=== PATIENT | male | born 1950 | race Caucasian/White ===

== ENCOUNTER 2017-06-08 00:20 | Emergency (ER) | payer OTHER, MEDICARE, BC ==
[~2017-06-08] VITALS: Ht 177.8 cm; Wt 96.0 kg
[2017-06-08 00:33] VITALS: BP 163/70; PULSE 73; RESP 18; TEMP 97.9; O2SAT 99
--- NOTE | 2017-06-08 01:06 | PD ---
HPI Chief Complaint: Flank/Kidney Pain Time Seen by Provider: 01:03 Travel History International Travel<30 days: No Contact w/Intl Traveler<30days: No Traveled to known affect area: No History of Present Illness HPI 67-year-old male presents to the emergency department for evaluation of sudden onset left flank and left lower quadrant pain that awakened him from sleep just prior to arrival to the emergency department. Patient states at time of onset pain was quite severe but is now 2-3/10 in intensity. Patient with nausea no vomiting. No report of chest pain shortness of breath sweats near syncope referred neck jaw upper back shoulder arm pain. Patient does have history of dyslipidemia hypertension diabetes BPH and posttraumatic stress disorder. Patient is followed to the [place]. Patient's blood sugar has been fairly well- controlled at 100-115. Patient has had no fever chills. Patient denies prior history of kidney stones. Patient is taken no medications prior to arrival to the emergency department. Patient did note some mild hematuria earlier today. PFSH Past Medical History Narrative Medical Hypertension dyslipidemia diabetes posttraumatic stress disorder BPH; tobacco use; nursing notes reviewed Social History Tobacco Use: Yes Allergies-Medications (Allergen,Severity, Reaction): Uncoded Allergies: BLACK WALNUTS (Allergy, Severe, HIVES, FACIAL SWELLING, 06/08/17) CAN EAT OTHER TYPES OF NUTS WITHOUT ALLERGIC REACION Reported Meds & Prescriptions Reported Meds & Active Scripts Active Reported Metformin (Metformin HCl) 500 Mg Tab 1 Tab PO BID Doxazosin (Doxazosin Mesylate) 4 Mg Tab 1 Tab PO HS Atorvastatin (Atorvastatin Calcium) 80 Mg Tab 1 Tab PO HS Voltaren (Diclofenac Sodium) 1 % Gel..gram. 1 Appl TOPICAL BID Losartan (Losartan Potassium) 100 Mg Tab 1 Tab PO DAILY Gabapentin 400 Mg Cap 1 Cap PO QID Review of Systems Except as stated in HPI: all other systems reviewed are Neg General / Constitutional: No: Fever, Chills HENT: No: Congestion Cardiovascular: No: Chest Pain or Discomfort Respiratory: No: Shortness of Breath Gastrointestinal: Positive: Nausea, Abdominal Pain (LLQ) Genitourinary: Positive: Hematuria, Flank Pain (left) Musculoskeletal: No: Myalgias, Arthralgias Skin: No Rash Neurologic: No: Weakness Psychiatric: No: Anxiety Hematologic/Lymphatic: No: Easy Bruising, Lymph Node Enlargement Physical Exam Narrative GENERAL: Well-developed well-nourished male no acute distress no respiratory distress SKIN: Warm and dry. HEAD: Normocephalic. EYES: No scleral icterus. No injection or drainage. NECK: Supple, trachea midline. No JVD or lymphadenopathy. CARDIOVASCULAR: Regular rate and rhythm without murmurs, gallops, or rubs. RESPIRATORY: Breath sounds equal bilaterally. No accessory muscle use. GASTROINTESTINAL: Abdomen soft, non-tender, nondistended. MUSCULOSKELETAL: No cyanosis, or edema. Radial dorsalis pedis pulses 2+ to palpation BACK: Nontender without obvious deformity. No CVA tenderness. Data Data Last Documented VS Vital Signs Date Time Temp Pulse Resp B/P (MAP) Pulse Ox O2 Delivery O2 Flow Rate FiO2 06/08/17 01:40 74 18 127/60 (82) 96 06/08/17 00:33 97.9 Orders Orders Complete Blood Count With Diff (06/08/17 01:03) Comprehensive Metabolic Panel (06/08/17 01:03) Urinalysis - C+S If Indicated (06/08/17 01:03) Ct Abd/Pel W/O Iv Contrast (06/08/17 01:03) Ecg Monitoring (06/08/17 01:03) Iv Access Insert/Monitor (06/08/17 01:03) Ketorolac Inj (Toradol Inj) (06/08/17 02:00) Sodium Chlorid 0.9% 500 Ml Inj (Ns 500 M (06/08/17 02:00) Labs Laboratory Tests Test 06/08/17 01:10 White Blood Count 9.4 TH/MM3 Red Blood Count 4.54 MIL/MM3 Hemoglobin 13.1 GM/DL Hematocrit 37.3 % Mean Corpuscular Volume 82.2 FL Mean Corpuscular Hemoglobin 28.7 PG Mean Corpuscular Hemoglobin Concent 35.0 % Red Cell Distribution Width 12.7 % Platelet Count 200 TH/MM3 Mean Platelet Volume 8.3 FL Neutrophils (%) (Auto) 76.0 % Lymphocytes (%) (Auto) 17.1 % Monocytes (%) (Auto) 5.0 % Eosinophils (%) (Auto) 1.4 % Basophils (%) (Auto) 0.5 % Neutrophils # (Auto) 7.2 TH/MM3 Lymphocytes # (Auto) 1.6 TH/MM3 Monocytes # (Auto) 0.5 TH/MM3 Eosinophils # (Auto) 0.1 TH/MM3 Basophils # (Auto) 0.0 TH/MM3 CBC Comment DIFF FINAL Differential Comment Urine Collection Type CLEAN CATCH Urine Color YELLOW Urine Turbidity SL CLOUDY Urine pH 5.0 Urine Specific [place] GREATER/EQUAL 1.030 Urine Protein TRACE mg/dL Urine Glucose (UA) 100 mg/dL Urine Ketones 15 mg/dL Urine Occult Blood LARGE Urine Nitrite NEG Urine Bilirubin NEG Urine Urobilinogen 0.2 MG/DL Urine Leukocyte Esterase NEG Urine RBC 25-49 /hpf Urine WBC 0-2 /hpf Urine Squamous Epithelial Cells 0-5 /hpf Urine Amorphous Sediment SMALL Urine Bacteria OCC /hpf Urine Hyaline Casts 0-2 /lpf Urine Mucus FEW /lpf Microscopic Urinalysis Comment CULT NOT INDICATED Blood Urea Nitrogen 22 MG/DL Creatinine 1.20 MG/DL Random Glucose 173 MG/DL Total Protein 7.4 GM/DL Albumin 4.1 GM/DL Calcium Level 8.9 MG/DL Alkaline Phosphatase 46 U/L Aspartate Amino Transf (AST/SGOT) 24 U/L Alanine Aminotransferase (ALT/SGPT) 30 U/L Total Bilirubin 0.5 MG/DL Sodium Level 136 MEQ/L Potassium Level 3.9 MEQ/L Chloride Level 102 MEQ/L Carbon Dioxide Level 23.7 MEQ/L Anion Gap 10 MEQ/L Estimat Glomerular Filtration Rate 60 ML/MIN [facility] Medical Decision Making Medical Screen Exam Complete: Yes Emergency Medical Condition: Yes Medical Record Reviewed: Yes Interpretation(s) CBC & BMP Diagram 06/08/17 01:10 Total Protein 7.4, Albumin 4.1, Calcium Level 8.9, Alkaline Phosphatase 46, Aspartate Amino Transf (AST/SGOT) 24, Alanine Aminotransferase (ALT/SGPT) 30, Total Bilirubin 0.5 Vital Signs Date Time Temp Pulse Resp B/P (MAP) Pulse Ox O2 Delivery O2 Flow Rate FiO2 06/08/17 01:40 74 18 127/60 (82) 96 06/08/17 01:20 75 06/08/17 00:33 97.9 73 18 163/70 (101) 99 UA: blood, sg>1.030; cx not indicated CT a/p: CONCLUSION: 1. Potential recent passage of a left ureteral calculus as the ureter appears slightly prominent and indurated relative to the right. There is a 2 x 4 mm faint nonobstructing stone of the left lower pole. 2. Cholelithiasis. No evidence of cholecystitis or biliary obstruction. Julio César Tate MD on June 08, 2017 at 1:43 Board Certified Radiologist. This report was verified electronically. Differential Diagnosis Flank pain, nephrolithiasis, pyelonephritis, abdominal aortic aneurysm, aortic dissection, diverticulitis Narrative Course IV access obtained specimens collected and sent for resulting patient placed on registered nurse cardiac with continuous pulse oximetry; CT imaging ordered Urinalysis positive blood; metabolic panel. Creatinine within normal range Patient comfortable voicing no concerns or complaints imaging study consistent with recent passage of probable stone with left proximal ureter dilatation; patient given one-time dose of Toradol 30 mg IV and bolus of normal saline 500 cc Patient encouraged to follow-up with primary care provider and urologist Patient is stable for outpatient management Diagnosis Primary Impression: Renal colic on left side Additional Impression: Left nephrolithiasis Referrals: Primary Care Physician call for appointment Urologist call for appointment Patient Instructions: General Instructions Additional Instructions: Increase fluid hydration Follow-up with urologist Follow up with her primary care provider Return to the emergency department for any concerns or change in condition Strain urine Take pain medication as prescribed as needed Take medication as prescribed as needed for nausea and/or vomiting Take ibuprofen/Advil/Motrin 600 mg may be taken as often as every 6-8 hours for pain associated with inflammation or for fever 100.4F or greater Take acetaminophen/Tylenol every 4 hours as needed for fever 100.4F or greater Med/Other Pt SpecificInfo: Prescription(s) given Scripts Ondansetron Odt (Zofran Odt) 4 Mg Tab 4 MG SL Q6HR Y for Nausea/Vomiting, #10 TAB 0 Refills Prov: Angelita Hammond MD 06/08/17 Oxycodone-Acetaminophen (Percocet) 5-325 mg Tab 1 TAB PO Q6H Y for PAIN, #7 TAB 0 Refills Prov: Angelita Hammond MD 06/08/17 Disposition: 01 DISCHARGE HOME Condition: Stable Angelita Hammond MD Jun 08, 2017 01:06
[2017-06-08 01:34] LABS: AUTOMATED NEUTROPHIL # 7.2 TH/MM3 (1.8-7.7); BASOPHIL % 0.5 % (0.0-2.0); EOSINOPHIL # 0.1 TH/MM3 (0-0.4); EOSINOPHIL % 1.4 % (0.0-4.0); HEMATOCRIT 37.3 % (39.0-51.0); HEMOGLOBIN 13.1 GM/DL (13.0-17.0); LYMPH % 17.1 % (9.0-44.0); LYMPHOCYTE # 1.6 TH/MM3 (1.0-4.8); MEAN CELL VOLUME 82.2 FL (80.0-100.0); MEAN CORPUSCULAR HEMOGLOBIN 28.7 PG (27.0-34.0); MEAN PLATELET VOLUME 8.3 FL (7.0-11.0); MONOCYTE # 0.5 TH/MM3 (0-0.9); PLATELET COUNT 200 TH/MM3 (150-450); RED BLOOD COUNT 4.54 MIL/MM3 (4.50-5.90); RED CELL DISTRIBUTION WIDTH 12.7 % (11.6-17.2); WHITE BLOOD COUNT 9.4 TH/MM3 (4.0-11.0)
[2017-06-08] MEDS ORDERED: ATOR80TA45 PO (01:34)
[2017-06-08] MEDS ORDERED: VOLT1GEL16 TOPICAL (01:34)
[2017-06-08] MEDS ORDERED: DOXA4TAB3 PO (01:34)
[2017-06-08] MEDS ORDERED: METF500T PO (01:34)
[2017-06-08] MEDS ORDERED: GABA400C5 PO (01:34)
[2017-06-08] MEDS ORDERED: LOSA100T PO (01:34)
[2017-06-08 01:35] LABS: BILIRUBIN, URINE NEG (NEG); BLOOD, URINE LARGE (NEG); GLUCOSE,URINE 100 mg/dL (NEG); KETONE, URINE 15 mg/dL (NEG); NITRITE,URINE NEG (NEG); URINE COLOR YELLOW (YELLW/STRAW); URINE LEUKOCYTE ESTERASE NEG (NEG)
[2017-06-08 01:40] VITALS: BP 127/60; PULSE 74; RESP 18; O2SAT 96
[2017-06-08 01:40] LABS: CHLORIDE 102 MEQ/L (98-107); SODIUM (NA) 136 MEQ/L (136-145)
[2017-06-08 01:44] LABS: ALBUMIN 4.1 GM/DL (3.4-5.0); BICARBONATE 23.7 MEQ/L (21.0-32.0); BLOOD UREA NITROGEN 22 MG/DL (7-18); CALCIUM 8.9 MG/DL (8.5-10.1); GLUCOSE,RANDOM 173 MG/DL (74-106)
[2017-06-08 01:47] LABS: ALT (GPT) 30 U/L (12-78); AST (GOT) 24 U/L (15-37); GLOMERULAR FILTRATION RATE 60 ML/MIN (>89)
[2017-06-08 01:49] LABS: MUCUS URINE FEW /lpf (OCC); TOTAL BILIRUBIN ADULT 0.5 MG/DL (0.2-1.0); TOTAL PROTEIN 7.4 GM/DL (6.4-8.2)
--- NOTE | 2017-06-08 01:49 | RADRPT ---
EXAM DATE/TIME: 06/08/2017 01:16 [facility] COMPARISON: No previous studies available for comparison. INDICATIONS : Left flank pain. ORAL CONTRAST: No oral contrast ingested. RADIATION DOSE: 17.33 CTDIvol (mGy) MEDICAL HISTORY : None SURGICAL HISTORY : None. ENCOUNTER: Initial ACUITY: 1 day PAIN SCALE: 6/10 LOCATION: Left flank TECHNIQUE: Volumetric scanning of the abdomen and pelvis was performed. Using automated exposure control and ad justment of the mA and/or kV according to patient size, radiation dose was kept as low as reasonably achievable to obtain optimal diagnostic quality images. DICOM format image data is available electro nically for review and comparison. FINDINGS: LOWER LUNGS: The visualized lower lungs are clear. LIVER: Homogeneous density without lesion. There is no dilation of the biliary tree. A few small stones in an otherwise normal-appearing gallbladder. No ductal stone or ductal dilatation demonstrated.. SPLEEN: Normal size without lesion. PANCREAS: Within normal limits. KIDNEYS: 2 x 4 mm faint stones seen lower pole the left kidney. Other than scattered vascular calcifications o f each kidney, no other calculus demonstrated. The left ureter appears slightly distended and slightl y indurated relative to the right ureter suggesting possible recent passage of a stone although I don 't see one in the bladder. The bladder is nearly empty at the time of imaging. ADRENAL GLANDS: Within normal limits. VASCULAR: Atherosclerotic aorta. No aneurysm. BOWEL/MESENTERY: The stomach, small bowel, and colon demonstrate no acute abnormality. There is no free intraperitone al air or fluid. Normal appendix. ABDOMINAL WALL: Within normal limits. RETROPERITONEUM: There is no lymphadenopathy. BLADDER: No wall thickening or mass. REPRODUCTIVE: Within normal limits. INGUINAL: There is no lymphadenopathy or hernia. MUSCULOSKELETAL: No acute bony abnormality demonstrated. CONCLUSION: 1. Potential recent passage of a left ureteral calculus as the ureter appears slightly prominent and indurated relative to the right. There is a 2 x 4 mm faint nonobstructing stone of the left lower dacia e. 2. Cholelithiasis. No evidence of cholecystitis or biliary obstruction. Julio César Tate MD on June 08, 2017 at 1:43 Board Certified Radiologist. This report was verified electronically.
[2017-06-08 01:50] LABS: ALKALINE PHOSPHATASE 46 U/L (45-117); HYALINE CAST, URINE 0-2 /lpf (RARE); SQUAMOUS EPITHELIAL CELL URINE 0-5 /hpf (0-5)
[2017-06-08 01:51] LABS: AMORPHOUS SEDIMENT, URINE SMALL; BACTERIA, URINE OCC /hpf; WBC, URINE 0-2 /hpf (0-5)
[2017-06-08] MEDS ORDERED: PERC5TAB12 PO (01:59)
[2017-06-08] MEDS ORDERED: ZOFR4TAB3 SL (01:59)
[2017-06-08] MEDS ORDERED: SODIUM CHLORID 0.9% 500 ML INJ 500 ML IV ONE (02:00)
[2017-06-08] MEDS ORDERED: KETOROLAC TROMETHAMINE 30 MG/ML (IVP) VIAL IV PUSH ONE (02:00)
[2017-06-08 02:26] VITALS: BP 118/59
== END 2017-06-08 02:25 | disposition home or self-care (01) ==
LOC: PHED 00:20
DX: N20.0 Calculus of kidney (principal); E11.9 Type 2 diabetes mellitus without complications; I10 Essential (primary) hypertension; R31.9 Hematuria, unspecified; Z79.899 Other long term (current) drug therapy; Z87.442 Personal history of urinary calculi; Z72.0 Tobacco use
CPT/HCPCS: 74176; 80053; 81001; 85025; 96374; 99284; J1885; J7040